=== PATIENT | male | born 1990 | race Caucasian/White ===

== ENCOUNTER 2018-11-10 20:25 | Emergency (ER) | payer BC ==
[2018-11-10] MEDS ORDERED: Sodium Chloride 0.9% 10 ML Syringe FLUSH PRN (20:49)
--- NOTE | 2018-11-10 20:49 | EDM.PDOC ---
ED HPI GENERAL MEDICAL PROBLEM - General Chief Complaint: Fever Stated Complaint: FEVER Time Seen by Provider: 11/10/18 20:35 Source of Information: Reports: Patient History Limitations: Reports: No Limitations - History of Present Illness INITIAL COMMENTS - FREE TEXT/NARRATIVE: 28-year-old male who reports that approximately 3 AM today when he was getting off work he developed shaking chills and had generalized malaise. When he went home he noted that he had a fever of 102.6 later on that morning he continued to have intermittent chills and shaking through the day but no measured fever ( temp was 95-98F). This afternoon he began to develop left thigh and groin pain with some left lower quadrant abdominal pain. He had no nausea or vomiting. He been urinating normally. He did have a normal bowel movement this morning while he was at work still. There is been no sore throat. No cough. No nasal congestion. He has been drinking liquids well but his appetite has been somewhat off. No known tick exposure but they were on a camping trip over the October. He is rating the pain in his left medial thigh, groin and lower abdomen as about a 6/10 when he is up and moving. It is a 1/10 when he is at rest. No body aches. The pain does radiate. There's been no trauma to the area of his leg. There is no redness or swelling in this area although he did notice a lump in his left groin area. There are no other associated signs or symptoms. There are no other modifying factors. 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 Surgical history as detailed below.) - Past Surgical History HEENT Surgical History: Reports: Tonsillectomy Social & Family History - Tobacco Use Smoking Status *Q: Never Smoker - Alcohol Use Alcohol Use History: Yes Alcohol Use Comment: Occasional alcohol use. - Living Situation & Occupation Living situation: Reports: Occupation: Employed (Works at [employer].) Social History Comment: He is here with his . ED ROS GENERAL - Review of Systems Review Of Systems: See Below Constitutional: Reports: Fever, Chills, Malaise HEENT: Reports: No Symptoms Respiratory: Reports: No Symptoms Cardiovascular: Reports: No Symptoms GI/Abdominal: Reports: Abdominal Pain (Left lower quadrant.) : Reports: No Symptoms Musculoskeletal: Reports: Other (Left groin and left medial thigh pain) Skin: Reports: No Symptoms Neurological: Reports: No Symptoms Hematologic/Lymphatic: Reports: No Symptoms Immunologic: Reports: Other (No known tick exposure.) ED EXAM, GENERAL - Physical Exam Exam: See Below Exam Limited By: No Limitations General Appearance: Alert, WD/WN, Mild Distress Eye Exam: Bilateral Eye: EOMI, Normal Inspection, PERRL Ears: Normal External Exam Ear Exam: Bilateral Ear: Auricle Normal Nose: Normal Inspection, Normal Mucosa, No Blood Throat/Mouth: Normal Voice, No Airway Compromise, Other (Dry mucous membranes) Head: Atraumatic, Normocephalic Neck: Normal Inspection, Supple, Non-Tender, Full Range of Motion Respiratory/Chest: No Respiratory Distress, Lungs Clear, Normal Breath Sounds, No Accessory Muscle Use, Chest Non-Tender Cardiovascular: Normal Peripheral Pulses, No JVD, No Murmur, Tachycardia (Mild) Peripheral Pulses: 2+: Radial (L), Radial (R) GI/Abdominal: Normal Bowel Sounds, Soft, No Distention, No Mass, Tender (Tender in the left lower quadrant area.) (Male) Exam: No: Hernia Back Exam: Normal Inspection. No: CVA Tenderness (R), CVA Tenderness (L) Extremities: Normal Range of Motion, Normal Capillary Refill, Leg Pain (Tender to palpation along left medial proximal thigh. There is some adenopathy in the left groin that is tender to palpation.) Neurological: Alert, Oriented, CN II-XII Intact, Normal Cognition, No Motor/ Sensory Deficits Skin Exam: Warm, Dry, Intact, Normal Color, No Rash Lymphatic: Adenopathy (As above in left groin area.) Course - Vital Signs Last Recorded V/S: Last Vital Signs Temp 37.1 C 11/10/18 22:28 Pulse 88 11/10/18 22:28 Resp 18 11/10/18 22:28 BP 131/66 11/10/18 22:28 Pulse Ox 99 11/10/18 22:28 - Orders/Labs/Meds Orders: Active Orders 24 hr Category Date Time Status Abdomen Pelvis w Cont [CT] Stat Exams 11/10/18 21:13 Taken EHRLICHIA AB PANEL Routine Lab 11/10/18 21:00 Received LYME, TOTAL AB TEST/REFLEX Urgent Lab 11/10/18 23:00 Received Sodium Chloride 0.9% [Saline Flush] Med 11/10/18 20:49 Active 10 ml FLUSH ASDIRECTED PRN Peripheral IV Insertion Adult [OM.PC] Routine Oth 11/10/18 20:49 Ordered Medication Orders Sodium Chloride (Saline Flush) 10 ml FLUSH ASDIRECTED PRN PRN Reason: Keep Vein Open Last Admin: 11/10/18 21:15 Dose: 10 ml Labs: Laboratory Tests 11/10/18 11/10/18 11/10/18 Range/Units 21:00 21:00 21:00 WBC 10.3 (4.5-12.0) X10-3/uL RBC 4.77 (4.30-5.75) x10(6)uL Hgb 16.3 (13.5-17.8) g/dL Hct 45.5 (30.0-51.3) % MCV 95.4 (80-96) fL MCH 34.0 H (27.7-33.6) pg MCHC 35.7 H (32.2-35.4) g/dL RDW 11.9 (11.5-15.5) % Plt Count 136 (125-369) X10(3)uL MPV 9.2 (7.4-10.4) fL Add Manual Diff Yes Neutrophils % (Manual) 91 H (46-82) % Lymphocytes % (Manual) 2 L (13-37) % Monocytes % (Manual) 6 (4-12) % Basophils % (Manual) 1 (0-2) % Sodium 141 (135-145) mmol/L Potassium 3.7 (3.5-5.3) mmol/L Chloride 106 (100-110) mmol/L Carbon Dioxide 25 (21-32) mmol/L BUN 14 (7-18) mg/dL Creatinine 1.1 (0.70-1.30) mg/dL Est Cr Clr Drug Dosing 118.32 mL/min Estimated GFR (MDRD) > 60 (>60) BUN/Creatinine Ratio 12.7 (9-20) Glucose 139 H (80-116) mg/dL Calcium 9.0 (8.6-10.2) mg/dL Total Bilirubin 3.3 H (0.1-1.3) mg/dL AST 19 (5-25) IU/L ALT 45 H (12-36) U/L Alkaline Phosphatase 54 L (56-112) IU/L C-Reactive Protein 10.7 H* (0.5-0.9) mg/dL Total Protein 6.4 (6.0-8.0) g/dL Albumin 3.8 (3.5-5.2) g/dL Globulin 2.6 g/dL Albumin/Globulin Ratio 1.5 Urine Color (YELLOW) Urine Appearance (CLEAR) Urine pH (5.0-6.5) Ur Specific [place] (1.010-1.025) Urine Protein (NEGATIVE) mg/dL Urine Glucose (UA) (NORMAL) mg/dL Urine Ketones (NEGATIVE) mg/dL Urine Occult Blood (NEGATIVE) Urine Nitrite (NEGATIVE) Urine Bilirubin (NEGATIVE) Urine Urobilinogen (NEGATIVE) mg/dL Ur Leukocyte Esterase (NEGATIVE) Urine RBC (0-5) Urine WBC (0-5) Ur Squamous Epith Cells (NS,R,O) Urine Bacteria (NS) 11/10/18 Range/Units 21:05 WBC (4.5-12.0) X10-3/uL RBC (4.30-5.75) x10(6)uL Hgb (13.5-17.8) g/dL Hct (30.0-51.3) % MCV (80-96) fL MCH (27.7-33.6) pg MCHC (32.2-35.4) g/dL RDW (11.5-15.5) % Plt Count (125-369) X10(3)uL MPV (7.4-10.4) fL Add Manual Diff Neutrophils % (Manual) (46-82) % Lymphocytes % (Manual) (13-37) % Monocytes % (Manual) (4-12) % Basophils % (Manual) (0-2) % Sodium (135-145) mmol/L Potassium (3.5-5.3) mmol/L Chloride (100-110) mmol/L Carbon Dioxide (21-32) mmol/L BUN (7-18) mg/dL Creatinine (0.70-1.30) mg/dL Est Cr Clr Drug Dosing mL/min Estimated GFR (MDRD) (>60) BUN/Creatinine Ratio (9-20) Glucose (80-116) mg/dL Calcium (8.6-10.2) mg/dL Total Bilirubin (0.1-1.3) mg/dL AST (5-25) IU/L ALT (12-36) U/L Alkaline Phosphatase (56-112) IU/L C-Reactive Protein (0.5-0.9) mg/dL Total Protein (6.0-8.0) g/dL Albumin (3.5-5.2) g/dL Globulin g/dL Albumin/Globulin Ratio Urine Color Yellow (YELLOW) Urine Appearance Clear (CLEAR) Urine pH 7.0 H (5.0-6.5) Ur Specific [place] 1.010 (1.010-1.025) Urine Protein Negative (NEGATIVE) mg/dL Urine Glucose (UA) Normal (NORMAL) mg/dL Urine Ketones Negative (NEGATIVE) mg/dL Urine Occult Blood Negative (NEGATIVE) Urine Nitrite Negative (NEGATIVE) Urine Bilirubin Negative (NEGATIVE) Urine Urobilinogen 4 H (NEGATIVE) mg/dL Ur Leukocyte Esterase Negative (NEGATIVE) Urine RBC Not seen (0-5) Urine WBC 0-5 (0-5) Ur Squamous Epith Cells Rare (NS,R,O) Urine Bacteria Rare H (NS) Meds: Medications Generic Name Dose Route Start Last Admin Trade Name Freq PRN Reason Stop Dose Admin Sodium Chloride 10 ml 11/10/18 20:49 11/10/18 21:15 Saline Flush FLUSH 10 ml ASDIRECTED PRN Administration Keep Vein Open Discontinued Medications Generic Name Dose Route Start Last Admin Trade Name Freq PRN Reason Stop Dose Admin Ceftriaxone Sodium 2 gm 11/10/18 22:55 11/10/18 23:01 Rocephin IVPUSH 11/10/18 22:56 2 gm ONETIME ONE Administration Sodium Chloride 1,000 mls @ 999 mls/hr 11/10/18 20:51 11/10/18 21:25 Normal Saline IV 11/10/18 21:51 999 mls/hr .BOLUS ONE Administration Iopamidol 150 ml 11/10/18 21:30 11/10/18 21:46 [id number] (76%) IV 11/10/18 21:31 134 ml ONETIME ONE Administration - Radiology Interpretation Free Text/Narrative:: CT scan of abdomen and pelvis showed reactive lymph nodes in the left groin and left lower abdomen. There were no other acute abnormalities. This was per the radiologist. - Re-Assessments/Exams Free Text/Narrative Re-Assessment/Exam: 11/10/18 22:50: I was called in by the patient secondary to a rash noted on his left anterior lower leg. He had noticed some discomfort in that area while he was sitting in the room and when he looked he noticed that there was some redness in the anterior left lower leg. Exam of the patient does show a cellulitis to the anterior left lower leg that is encompassing the entire lower half of the anterior lower leg. His blood tests are supporting an infection. The CT scan of his abdomen and pelvis to showed reactive lymph nodes. I will treat the patient with Rocephin 2 g IV now and will place the patient on Keflex 750 mg 3 times a day for 10 days. I have also given him off work for the next 2 days and he needs to stay at home with his left leg elevated as much as possible. He should follow up with his primary doctor. Departure - Departure Time of Disposition: 23:25 Disposition: Home, Self-Care 01 Condition: Good Clinical Impression: Cellulitis of left lower leg, Reactive lymphadenopathy - Discharge Information Prescriptions: Cephalexin [Keflex] 750 mg PO TID 10 Days #90 capsule Instructions: Lymphadenopathy, Cellulitis, Adult, [id number], Fever, Adult, [id number] Referrals: PCP,None [Primary Care Provider] - Forms: ED Department Discharge, ED Return to Work/School Form Additional Instructions: You have an infection of the skin of your left lower leg. No work until 2018 at 10 pm. You will need to stay off of your left leg as much as possible and keep it elevated as much as possible for the next 2 days. Drink plenty of fluids. Take ibuprofen and Tylenol as needed for fever or pain. Medication as prescribed (Keflex). Back to the emergency department for trouble breathing, worsening infection, unrelenting vomiting or any other concerning sign or symptom. - My Orders Last 24 Hours: My Active Orders 11/10/18 20:49 Sodium Chloride 0.9% [Saline Flush] 10 ml FLUSH ASDIRECTED PRN Peripheral IV Insertion Adult [OM.PC] Routine 11/10/18 21:00 EHRLICHIA AB PANEL Routine 11/10/18 21:13 Abdomen Pelvis w Cont [CT] Stat 11/10/18 23:00 LYME, TOTAL AB TEST/REFLEX Urgent - Assessment/Plan Last 24 Hours: My Active Orders 11/10/18 20:49 Sodium Chloride 0.9% [Saline Flush] 10 ml FLUSH ASDIRECTED PRN Peripheral IV Insertion Adult [OM.PC] Routine 11/10/18 21:00 EHRLICHIA AB PANEL Routine 11/10/18 21:13 Abdomen Pelvis w Cont [CT] Stat 11/10/18 23:00 LYME, TOTAL AB TEST/REFLEX Urgent
[2018-11-10] MEDS ORDERED: Sodium Chloride 0.9% 1,000 ML IV ONE (20:51)
[2018-11-10] MEDS ORDERED: Iopamidol 755 MG/ML 150 ML Bottle IV ONE (21:30)
[2018-11-10] MEDS ORDERED: cefTRIAXone 2 GM Vial IVPUSH ONE (22:55)
[2018-11-14 10:10] LABS: LYME IGG/IGM AB <0.91 ISR (0.00-0.90)
[2018-11-15 14:08] LABS: E. CHAFFEENSIS (HME) IGG TITER Negative (Neg:<1:64); E. CHAFFEENSIS (HME) IGM TITER Negative (Neg:<1:20); HGE IGG TITER Negative (Neg:<1:64); HGE IGM TITER Negative (Neg:<1:20)
== END 2018-11-10 23:30 | disposition home or self-care (01) ==
LOC: FB.ED 20:25
DX: L03.116 Cellulitis of left lower limb (principal); R59.1 Generalized enlarged lymph nodes
CPT/HCPCS: 36415; 74177; 80053; 81001; 85025; 86140; 86618; 96361; 96374; 99284; J0696; J7030; Q9967; 86666